=== PATIENT | female | born 1995 | race Caucasian/White ===

== ENCOUNTER 2017-05-29 21:16 | Emergency (ER) | payer BC ==
[~2017-05-29] VITALS: Ht 165.1 cm; Wt 60.2 kg
[2017-05-29 21:19] VITALS: Ht 165.1 cm; Wt 60.2 kg
[2017-05-29] MEDS ORDERED: SODIUM CHLORIDE 0.9% 1000ML 1,000 ML IV STA (21:31)
[2017-05-29] MEDS ORDERED: CEFTRIAXONE SOD INJ 1 GM ADDVIAL IV STA (21:31)
[2017-05-29] MEDS ORDERED: KETOROLAC TROMETHAMINE 30 MG/ML VIAL IV STA (21:31)
--- NOTE | 2017-05-29 21:35 | EMERGENCY ROOM VISIT NOTE ---
History Report prepared by Curtis: Sharron Kessler Under the Supervision of: Dr. Ryan Brooks M.D. First contact with patient: 21:26 Chief Complaint: FEVER Stated Complaint: 104.5 FEVER FOR AN HOUR,103.1 AFTER COLD SHOWER History of Present Illness The patient is a 21 year old female who presents to the Emergency Room with complaints of a constant fever beginning this morning. The patient states that she took an Advil this morning without relief of her symptoms. She reports that her fever was 104.5 today. She complains of a headache, runny nose, fever. The patient denies any neck pain, urinary symptoms, and chance of . She notes that she has had an inflamed tonsil that she has seen a PCP for. Source of History: patient Onset: today Position: other (global) Symptom Intensity: 104.5 Quality: other (fever) Timing: constant Associated Symptoms: + headache, No neck pain, No urinary symptoms Note: Pt complains of runny nose and tonsil swelling. Review of Systems See HPI for pertinent positives & negatives. A total of 10 systems reviewed and were otherwise negative. Past Medical & Surgical Medical Problems: (1) No Known Active Medical Problems Family History No pertinent family history stated. Social History Smoking Status: Never Smoker Smokeless Tobacco Use: No Marital Status: single Housing Status: lives with roommate Occupation Status: [employer] student Current/Historical Medications Scheduled Amoxicillin & Pot Clavulanate (Augmentin 875-125 mg), 1 TAB PO BID Control Pills ( Control Pills), 1 TAB PO DAILY Allergies Coded Allergies: No Known Allergies (Unverified , 05/29/17) Physical Exam Vital Signs Date Time Temp Pulse Resp B/P (MAP) Pulse Ox O2 Delivery O2 Flow Rate FiO2 05/29/17 23:25 37.1 99 20 119/74 99 05/29/17 22:56 37.1 108 18 119/74 99 Room Air 05/29/17 22:28 Room Air 05/29/17 21:19 39.5 96 16 119/78 99 Room Air Physical Exam GENERAL: Patient is a healthy-appearing well-nourished female HEAD: Normocephalic atraumatic EYES: Ocular movements intact pupils equal and react to light OROPHARYNX mucous membranes are moist no exudates present no erythema or edema present, no evidence of tonsillar abscess NECK: Supple no nuchal rigidity CHEST: Good equal expansion LUNGS: Clear and equal to auscultation CARDIAC: Normal S1 and S2 ABDOMEN: Soft nontender no guarding BACK: No CVA tenderness EXTREMITIES: No pain upon palpation normal muscle strength in all groups no clubbing cyanosis or edema NEURO: Patient is following commands and answering questions appropriately. Alert and oriented x3 Cranial Nerves 2-12 grossly intact. No evidence of meningitis or encephalitis on exam. Medical Decision & Procedures ER Provider Diagnostic Interpretation: X-ray results as stated below per interpretation by me and the radiologist: CHEST ONE VIEW PORTABLE FINDINGS: The lungs are clear. Cardiac silhouette is normal in size. No pleural effusions. No pneumothorax. The patient's hair overlies the right lung apex. IMPRESSION: No acute process. Electronically signed by: Car Cooper M.D. 05/29/2017 10:45 PM Dictated Date/Time: 05/29/2017 10:40 PM Laboratory Results 05/29/17 21:47 Red Blood Count 5.21, Mean Corpuscular Volume 78.3, Mean Corpuscular Hemoglobin 26.7, Mean Corpuscular Hemoglobin Concent 34.1, Mean Platelet Volume 8.3, Neutrophils (%) (Auto) 80.3, Lymphocytes (%) (Auto) 13.7, Monocytes (%) (Auto) 5.5, Eosinophils (%) (Auto) 0.0, Basophils (%) (Auto) 0.2, Neutrophils # (Auto) 9.93, Lymphocytes # (Auto) 1.69, Monocytes # (Auto) 0.68, Eosinophils # (Auto) 0.00, Basophils # (Auto) 0.02 05/29/17 21:47 Test 05/29/17 21:40 05/29/17 21:45 05/29/17 21:47 Urine Color YELLOW Urine Appearance CLEAR (CLEAR) Urine pH 5.0 (4.5-7.5) Urine Specific Caspian 1.017 (1.000-1.030) Urine Protein NEG (NEG) Urine Glucose (UA) NEG (NEG) Urine Ketones TRACE (NEG) Urine Occult Blood 2+ (NEG) Urine Nitrite NEG (NEG) Urine Bilirubin NEG (NEG) Urine Urobilinogen NEG (NEG) Urine Leukocyte Esterase NEG (NEG) Urine WBC (Auto) 1-5 /hpf (0-5) Urine RBC (Auto) 0-4 /hpf (0-4) Urine Hyaline Casts (Auto) 1-5 /lpf (0-5) Urine Epithelial Cells (Auto) 20-30 /lpf (0-5) Urine Bacteria (Auto) NEG (NEG) Influenza Type A Antigen Neg for Influ A (NEG) Influenza Type B Antigen Neg for Influ B (NEG) White Blood Count 12.36 K/uL (4.8-10.8) Red Blood Count 5.21 M/uL (4.2-5.4) Hemoglobin 13.9 g/dL (12.0-16.0) Hematocrit 40.8 % (37-47) Mean Corpuscular Volume 78.3 fL (80-100) Mean Corpuscular Hemoglobin 26.7 pg (25-34) Mean Corpuscular Hemoglobin Concent 34.1 g/dl (32-36) Platelet Count 352 K/uL (130-400) Mean Platelet Volume 8.3 fL (7.4-10.4) Neutrophils (%) (Auto) 80.3 % Lymphocytes (%) (Auto) 13.7 % Monocytes (%) (Auto) 5.5 % Eosinophils (%) (Auto) 0.0 % Basophils (%) (Auto) 0.2 % Neutrophils # (Auto) 9.93 K/uL (1.4-6.5) Lymphocytes # (Auto) 1.69 K/uL (1.2-3.4) Monocytes # (Auto) 0.68 K/uL (0.11-0.59) Eosinophils # (Auto) 0.00 K/uL (0-0.5) Basophils # (Auto) 0.02 K/uL (0-0.2) RDW Standard Deviation 37.1 fL (36.4-46.3) RDW Coefficient of Variation 13.1 % (11.5-14.5) Immature Granulocyte % (Auto) 0.3 % Immature Granulocyte # (Auto) 0.04 K/uL (0.00-0.02) Anion Gap 10.0 mmol/L (3-11) Est Creatinine Clear Calc Drug Dose 101.8 ml/min Estimated GFR () 123.9 Estimated GFR (Non- 106.9 BUN/Creatinine Ratio 9.9 (10-20) Calcium Level 9.6 mg/dl (8.5-10.1) Total Bilirubin 0.4 mg/dl (0.2-1) Direct Bilirubin < 0.1 mg/dl (0-0.2) Aspartate Amino Transf (AST/SGOT) 79 U/L (15-37) Alanine Aminotransferase (ALT/SGPT) 36 U/L (12-78) Alkaline Phosphatase 85 U/L (45-117) Total Protein 8.8 gm/dl (6.4-8.2) Albumin 4.1 gm/dl (3.4-5.0) Monoscreen NEG (NEG) Labs reviewed by ED physician. Medications Administered Medications (Trade) Dose Ordered Sig/Brian Route Start Time Stop Time Status Last Admin Dose Admin Ketorolac Tromethamine (Toradol Inj) 30 mg NOW STAT IV 05/29/17 21:31 05/29/17 21:34 DC 05/29/17 22:13 30 MG Sodium Chloride 1,000 ml @ 999 mls/hr Q1H1M STAT IV 05/29/17 21:31 05/29/17 22:31 DC 05/29/17 22:13 999 MLS/HR Ceftriaxone Sodium (Rocephin Inj) 1 gm NOW STAT IV 05/29/17 21:31 05/29/17 21:34 DC 05/29/17 22:13 1 GM Potassium Chloride (Beth [place]iel Elix) 40 meq NOW STAT PO 05/29/17 22:34 05/29/17 22:35 DC 05/29/17 22:48 40 MEQ Acetaminophen (Tylenol Tab) 1,000 mg NOW STAT PO 05/29/17 22:36 05/29/17 22:38 DC 05/29/17 22:48 1,000 MG Amoxicillin/ Clavulanate Potassium (Augmentin Tab) 875 mg ONE ONCE PO 05/29/17 22:45 05/29/17 22:46 DC 05/29/17 22:48 875 MG Amoxicillin/ Clavulanate Potassium (Augmentin Tab) 875 mg BID ONCE PO 05/30/17 09:00 05/30/17 09:00 DC 05/29/17 22:49 875 MG ED Course 2125: Past medical records reviewed. The patient was evaluated in room B7. A complete history and physical examination was performed. 2130: Rocephin Inj 1gm IV, Sodium Chloride 1000 ml @ 999 mls/hr IV, Toradol Inj 30mg IV. 2234: Potassium Chloride 40meq PO, Tylenol Tab 1000mg PO. 2245: Augmentin Tab 875mg PO. 2331: Upon reexamination the patient is doing well. I discussed results and treatment plan with the patient. She verbalizes agreement and understanding. The patient is ready for discharge. 0900: Augmentin Tab 875mg PO. Medical Decision Differential diagnosis: Etiologies such as viral syndrome, otitis, pharyngitis, pneumonia, influenza, meningitis, urinary tract infection, sepsis, bacteremia, as well as others were entertained. This is a 21-year-old female who presents emergency department complaining of sore throat. The patient has no evidence of tonsillar abscess however she does have a sore throat. An IV was established, patient given normal saline bolus, Toradol, Rocephin. Repeat examination revealed much improvement the patient's symptoms. The patient was able tolerate oral Tylenol as well as Augmentin. She has no evidence of meningitis encephalitis on examination. She does have a slight elevation in her white blood count cell count and based on that finding along with the area swelling in her mouth I will place the patient on Augmentin. I stressed the need for follow-up with [facility] and to return if she is unable swallow or fevers or out of control. Patient is in agreement with the treatment plan. Medication Reconcilliation Current Medication List: was personally reviewed by me Blood Pressure Screening Patient's blood pressure: Normal blood pressure Blood pressure disposition: Did not require urgent referral Impression Primary Impression: Fever Scribe Attestation The scribe's documentation has been prepared under my direction and personally reviewed by me in its entirety. I confirm that the note above accurately reflects all work, treatment, procedures, and medical decision making performed by me. Departure Information Dispostion Home / Self-Care Prescriptions Amoxicillin & Pot Clavulanate (Augmentin 875-125 mg) 1 Tab Tab 1 TAB PO BID for 10 Days, #20 TAB Prov: Ryan Brooks MD 05/29/17 Referrals [facility] (PCP) Forms HOME CARE DOCUMENTATION FORM, IMPORTANT VISIT INFORMATION Patient Instructions ED Fever Control, ED Fever Unconf Cause, My [facility] Additional Instructions Take 600 mg Ibuprofen every 6 hours Take 1000 mg Tylenol every 6 hours Alternate meds every 3 hours Increase fluids next 48 hours You have been examined and treated today on an emergency basis only. This is not a substitute for, or an effort to provide, complete comprehensive medical care. It is impossible to recognize and treat all injuries or illnesses in a single emergency department visit. It is therefore important that you follow up closely with [facility]. Call as soon as possible for an appointment. Thank you for your time and consideration. I look forward to speaking with you again soon. Please don't hesitate to call us if you have any questions. Problem Qualifiers Primary Impression: Fever Fever type: unspecified Qualified Codes: R50.9 - Fever, unspecified
[2017-05-29] MEDS ORDERED: BCPILLS PO (21:51)
[2017-05-29 22:04] LABS: URINE APPEARANCE CLEAR (CLEAR); URINE BILIRUBIN NEG (NEG); URINE COLOR YELLOW; URINE EPITHELIAL CELL AUTO 20-30 /lpf (0-5); URINE NITRITE NEG (NEG); URINE SPECIFIC GRAVITY 1.017 (1.000-1.030); UROBILINOGEN NEG (NEG)
[2017-05-29 22:06] LABS: MANUAL MICROSCOPIC REQUIRED? NO; REVIEW REQ? NO
[2017-05-29 22:09] LABS: BASO % 0.2 %; BASO ABS # 0.02 K/uL (0-0.2); COMPLETE YES; HEMATOCRIT 40.8 % (37-47); IG% 0.3 %; LYMPH % 13.7 %; LYMPH ABS # 1.69 K/uL (1.2-3.4); MEAN CELL VOLUME 78.3 fL (80-100); MEAN CORPUSCULAR HEMOGLOBIN 26.7 pg (25-34); MEAN CORPUSCULAR HGB CONC 34.1 g/dl (32-36); MEAN PLATELET VOLUME 8.3 fL (7.4-10.4); MONO % 5.5 %; NEUT % 80.3 %; PLATELET COUNT 352 K/uL (130-400); RED BLOOD COUNT 5.21 M/uL (4.2-5.4); WHITE BLOOD COUNT 12.36 K/uL (4.8-10.8)
[2017-05-29 22:32] LABS: ALT/SGPT 36 U/L (12-78); BLOOD UREA NITROGEN 8 mg/dl (7-18); BUN/CREATININE RATIO 9.9 (10-20); CALCIUM 9.6 mg/dl (8.5-10.1); CARBON DIOXIDE 21 mmol/L (21-32); CHLORIDE 104 mmol/L (98-107); GLUCOSE 84 mg/dl (70-99); POTASSIUM 3.2 mmol/L (3.5-5.1); SODIUM 135 mmol/L (136-145)
[2017-05-29 22:34] LABS: ALKALINE PHOSPHATASE 85 U/L (45-117); AST/SGOT 79 U/L (15-37)
[2017-05-29] MEDS ORDERED: POTASSIUM CHLORIDE 20 MEQ/15 ML UDC PO STA (22:34)
[2017-05-29] MEDS ORDERED: ACETAMINOPHEN 500 MG TAB PO STA (22:36)
[2017-05-29] MEDS ORDERED: AMOXICILLIN/CLAVULANATE TAB 875 MG TAB PO ONE (22:45)
--- NOTE | 2017-05-29 22:47 | DIAGNOSTIC IMAGING REPORT ---
CHEST ONE VIEW PORTABLE HISTORY: Short of breath. COMPARISON: None. FINDINGS: The lungs are clear. Cardiac silhouette is normal in size. No pleural effusions. No pneumothorax. The patient's hair overlies the right lung apex. IMPRESSION: No acute process. Electronically signed by: Car Cooper M.D. 05/29/2017 10:45 PM Dictated Date/Time: 05/29/2017 10:40 PM
[2017-05-29] MEDS ORDERED: AMOX875T PO (23:07)
[2017-05-29 23:25] VITALS: BP 119/74; PULSE 99; TEMP 37.1; O2SAT 99
[2017-05-30 03:16] LABS: INFLUENZA A PCR Neg for Influ A (NEG); INFLUENZA B PCR Neg for Influ B (NEG)
[2017-05-30] MEDS ORDERED: AMOXICILLIN/CLAVULANATE TAB 875 MG TAB PO ONE (09:00)
[2017-06-01 13:03] LABS: EBV EARLY ANTIGEN AB <9.00 U/ML; EPSTEIN BARR VIR CAPSID IGG <18.00 U/ML
== END 2017-05-29 23:25 | disposition home or self-care (01) ==
LOC: C.EDB 21:17
DX: R50.9 Fever, unspecified (principal); J02.9 Acute pharyngitis, unspecified; Z79.3 Long term (current) use of hormonal contraceptives